=== PATIENT | female | born 1985 | race Hispanic/Latino ===

== ENCOUNTER 2016-10-10 00:09 | Inpatient (IN) | payer OTHER ==
[2016-10-10] MEDS ORDERED: PITOCin/NS 20 UNIT/1000ML DRIP 20,000 MILLIUNITS/1,000 ML BAG IV ONE (00:50)
[2016-10-10] MEDS ORDERED: TORADOL IV ONE (01:38)
[2016-10-10] MEDS ORDERED: CYTOTEC VG ONE (01:40)
[2016-10-10] MEDS ORDERED: PITOCin/NS 20 UNIT/1000ML DRIP 20 UNITS/1,000 ML BAG IV SCH (02:00)
[2016-10-10 02:47] LABS: Hematocrit 43.2 % (30.3-42.9); Mean Corpuscular HGB Conc 33 % (30-34); Mean Corpuscular Hemoglobin 28 pg (28-32); Mean Corpuscular Volume 85 fl (79-97); Platelet Count 142 K/mm3 (140-440); Red Blood Count 5.06 M/mm3 (3.65-5.03); Red Cell Distribution Width 15.8 % (13.2-15.2); White Blood Count 17.6 K/mm3 (4.5-11.0)
[2016-10-10] MEDS ORDERED: MILK OF MAGNESIA PO PRN ×2 (03:32→22:00)
[2016-10-10] MEDS ORDERED: SOLARCAINE ALOE TP PRN (03:32)
[2016-10-10] MEDS ORDERED: ZOFRAN IV PRN ×2 (03:32→08:00)
[2016-10-10] MEDS ORDERED: BENADRYL PO PRN ×2 (03:32→07:31)
[2016-10-10] MEDS ORDERED: DULCOLAX PR PRN ×2 (03:32→07:31)
[2016-10-10] MEDS ORDERED: TYLENOL PO PRN ×2 (03:32→07:31)
[2016-10-10] MEDS ORDERED: PHENERGAN PR PRN ×2 (03:32→07:31)
[2016-10-10] MEDS ORDERED: TUCKS PAD TP PRN ×2 (03:32→07:31)
[2016-10-10] MEDS ORDERED: LANSINOH TP PRN ×2 (03:32→07:31)
[2016-10-10] MEDS ORDERED: SODIUM CHLORIDE FLUSH SYRINGE 10 ML IV NR ×2 (04:00→08:00)
[2016-10-10] MEDS ORDERED: PHENERGAN PO PRN (07:31)
[2016-10-10] MEDS ORDERED: NORCO 5/325 PO PRN (07:31)
--- NOTE | 2016-10-10 07:34 | History and Physical Report ---
History of Present Illness Date of examination: 10/10/16 Date of admission: 10/10/16 00:09 Chief complaint: contractions History of present illness: 30y/o @ 38+3 weeks presents in active labor with complete dilation. Patient had a precipitous delivery after being transferred to [facility]. course complicated by tobacco use and GDMA1. GBS status unknown Past History Past Medical History: no pertinent history Past Surgical History: no surgical history Social history: , smoking - Obstetrical History : 2 Medications and Allergies Allergies Allergy/AdvReac Type Severity Reaction Status Date / Time No Known Allergies Allergy Unverified 05/04/15 04:37 Home Medications Medication Instructions Recorded Confirmed Last Taken Type No Known Home Medications [No 05/06/15 05/06/15 Unknown History Reported Home Medications] Active Meds: Active Medications Acetaminophen (Tylenol) 650 mg PO Q4H PRN PRN Reason: Pain MILD(1-3)/Fever >100.5/NAPIER Bisacodyl (Dulcolax) 10 mg TX BID PRN PRN Reason: Constipation Diphenhydramine HCl (Benadryl) 25 mg PO Q6H PRN PRN Reason: Itching Oxytocin/Sodium Chloride (Pitocin/Ns 20 Unit/1000ml Drip) 20 units in 1,000 mls @ 125 mls/hr IV DIRECT HARESH Last Admin: 10/10/16 02:00 Dose: 125 mls/hr Ibuprofen (Motrin) 600 mg PO Q6H HARESH Lidocaine HCl (Solarcaine Aloe) 1 spray TP PRN PRN PRN Reason: Vaginal Irritation Magnesium Hydroxide (Milk Of Magnesia) 30 ml PO HS PRN PRN Reason: Constipation Multi-Ingredient Ointment (Lansinoh) 1 applic TP PRN PRN PRN Reason: Sore Nipples Ondansetron HCl (Zofran) 4 mg IV Q8H PRN PRN Reason: Nausea And Vomiting Promethazine HCl (Phenergan) 25 mg TX Q6H PRN PRN Reason: Nausea And Vomiting Sodium Chloride (Sodium Chloride Flush Syringe 10 Ml) 10 ml IV PRN NR Stop: 10/11/16 03:59 Witch Regine/Glycerin (Tucks Pad) 1 each TP PRN PRN PRN Reason: Hemorrhoid/cleansing/soothing Review of Systems Genitourinary: leakage of fluid, contractions - Vital Signs Vital signs: Vital Signs Pulse BP 70 117/61 10/10/16 00:55 10/10/16 00:55 Temp Pulse Resp BP Pulse Ox 99 F 66 20 101/51 99 10/10/16 06:15 10/10/16 06:15 10/10/16 06:15 10/10/16 06:15 10/10/16 02:31 - Physical Exam Breasts: Positive: deferred Cardiovascular: Regular rate Lungs: Positive: Clear to auscultation Abdomen: Positive: normal appearance Results Result Diagrams: 10/10/16 01:41 Abnormal lab results 10/10/16 Range/Units 01:41 WBC 17.6 H (4.5-11.0) K/mm3 RBC 5.06 H (3.65-5.03) M/mm3 Hct 43.2 H (30.3-42.9) % RDW 15.8 H (13.2-15.2) % All other labs normal. Assessment and Plan - Patient Problems (1) Precipitous delivery Current Visit: Yes Status: Acute Plan to address problem: routine care (2) Normal spontaneous vaginal delivery Current Visit: No Status: Acute
--- NOTE | 2016-10-10 07:51 | Procedure Note ---
OB Delivery Note - Delivery Date of Delivery: 10/10/16 Surgeon: TANIKA BERNARDO Estimated blood loss: 100cc - Vaginal Delivery presentation: vertex Delivery position: OA Intrapartum events: precipitous labor- <3hr Delivery monitor: external FHT Route of delivery: Delivery placenta: spontaneous Delivery cord: 3 umbilical vessels Delivery comments: Patient presented to triage in active labor with complete dilation. Patient had preciptious delivery of liveborn female . Delivery complicated by meconium. Infant apgars of 7/9. Placenta delivered spontaneously intact. Patient experienced bleeding that was controlled with cytotec. Infant weight 1895gm - Infant A at 1 minute: 7 at 5 minutes: 9 Gender: Female (weight 1895gm)
[2016-10-10] MEDS ORDERED: MOTRIN PO SCH (08:00)
[2016-10-10] MEDS: MOTRIN PO SCH ×3 (12:33→23:30)
[2016-10-10 12:50] LABS: Hematocrit 40.7 % (30.3-42.9); Hemoglobin 13.6 gm/dl (10.1-14.3)
[2016-10-11] MEDS: MOTRIN PO SCH ×2 (05:45→11:16)
--- NOTE | 2016-10-11 17:06 | Progress Note ---
Assessment and Plan O: VSS AF PP H/H: 13.6/40.7 A: Stable PP Day 2 Smoker P: D/c home Subjective - Subjective Date of service: 10/11/16 Patient reports: appetite normal, voiding normally, pain well controlled, flatus , ambulating normally : doing well, in NICU Objective - Vital Signs Latest vital signs: Vital Signs Temp Pulse Resp BP 10/11/16 09:50 98.6 F 68 20 112/66 10/11/16 00:00 98.3 F 55 L 20 103/56 Intake and Output 10/11/16 10/11/16 10/11/16 06:59 14:59 22:59 Intake Total 240 1070 Balance 240 1070 Intake: Oral 240 830 Intake, Free Water 240 Other: Total, Intake Amount 240 240 # Voids Void 1 1 - Exam Lungs: Present: Normal air movement Abdomen: Present: normal appearance, soft. Absent: distention, tenderness Uterus: Present: normal, firm, fundal height below umbilicus Extremities: Present: normal
--- NOTE | 2016-10-11 17:09 | Discharge Summary ---
Providers - Providers Date of Admission: 10/10/16 00:09 Date of discharge: 10/11/16 Attending physician: CHUCK SAUL Primary care physician: CHUCK SAUL Hospitalization Reason for admission: active labor, IUP at term Delivery: Episiotomy: none Laceration: none Other procedures: none complications: none Discharge diagnosis: IUP at term delivered baby: female Condition at discharge: Good Disposition: DISCHARGED TO HOME OR SELFCARE Plan - Discharge Medications Prescriptions: Ibuprofen [Motrin 600 MG tab] 600 mg PO Q6H PRN #30 tablet PRN Reason: Pain Nicotine [Habitrol] 14 mg TD DAILY #44 patch - Provider Discharge Summary Activity: routine, no sex for 6 weeks, no heavy lifting 4 weeks, no strenuous exercise Diet: routine Instructions: routine Additional instructions: [] Smoking cessation referral if applicable(refer to patient education folder for contact #) [] Refer to [facility]'s [facility] Booklet Call your doctor immediately for: * Fever > 100.5 * Heavy vaginal bleeding ( >1 pad per hour) * Severe persistent headache * Shortness of breath * Reddened, hot, painful area to leg or breast * Drainage or odor from incision. * Keep incision clean and dry at all times and follow doctor's instructions regarding bathing/showering - Follow up plan Follow up: CHUCK SAUL MD [Primary Care Provider] - NATHANIEL CROWDER CNM [Advanced Practice Nurse] - (rto 4 weeks ) Forms: [facility] Discharge Summary
[2016-10-11] MEDS ORDERED: HABITROL TD SCH (18:00)
[2016-10-11 18:27] VITALS: BP 96/50
== END 2016-10-11 20:35 | disposition home or self-care (01) | DRG 774 ==
LOC: LD 00:09 → OB 03:15
PROVIDERS: ADMIT Obstetrics & Gynecology; ATTEND Obstetrics & Gynecology
PROC: 10E0XZZ Delivery of Products of Conception, External Approach (ICD-10-PCS; principal; 2016-10-10)
DX: O62.3 Precipitate labor (principal); O72.1 Other immediate postpartum hemorrhage; O77.0 Labor and delivery complicated by meconium in amniotic fluid; O99.334 Smoking (tobacco) complicating childbirth; F17.200 Nicotine dependence, unspecified, uncomplicated; Z3A.38 38 weeks gestation of pregnancy; Z37.0 Single live birth; O24.429 Gestational diabetes mellitus in childbirth, unspecified control
CPT/HCPCS: 36415; 82962; 85014; 85018; 85027; 86850; 86900; 86901; 88307; 99406; A6250; J1885; J2590